=== PATIENT | female | born 1955 | race Native Hawaiian/Other Pacific Islander ===

== ENCOUNTER 2016-07-29 15:58 | Outpatient (CLI) | payer OTHER ==
[2016-07-29 17:23] LABS: PLATELET COUNT 218 K/uL (152-353)
== END 2016-07-29 19:21 | disposition home or self-care (01) ==
LOC: LABW 15:58
PROVIDERS: Nurse Practitioner
DX: R31.9 Hematuria, unspecified (principal); C67.9 Malignant neoplasm of bladder, unspecified
CPT/HCPCS: 36415; 85027

== ENCOUNTER 2016-08-11 17:54 | Observation (INO) | payer OTHER ==
[~2016-08-11] VITALS: Ht 154.9 cm; Wt 77.7 kg
[2016-08-11 18:05] VITALS: BP 155/85; TEMP 98.5
[2016-08-11 18:44] LABS: PLATELET COUNT 220 K/uL (152-353)
[2016-08-11 18:48] LABS: POTASSIUM 4.5 mmol/L (3.6-5.2)
[2016-08-11 19:04] LABS: PARTIAL THROMBOPLASTIN TIME 24.6 SECONDS (24.5-33.6)
--- NOTE | 2016-08-11 23:24 | NUR ---
RECEIVED REPORT ON PT FROM Mario Alberto CALVILLO RN FROM ED.
--- NOTE | 2016-08-11 23:30 | NUR ---
PT ARRIVED TO FLOOR AT THIS TIME VIA WHEELCHAIR PER ED STAFF. PT ORIENTED TO ROOM AND CALL SYSTEM. FURTHER ASSESSMENT DONE AT THIS TIME CHARTED.
[2016-08-12 00:38] VITALS: BP 153/72; TEMP 98.2; Ht 154.9 cm; Wt 77.7 kg
[2016-08-12 04:00] VITALS: BP 126/64; TEMP 98.1
[2016-08-12 08:00] VITALS: BP 142/61; TEMP 98.1
[2016-08-12 08:55] LABS: PLATELET COUNT 215 K/uL (152-353)
--- NOTE | 2016-08-12 09:15 | NUR ---
DANIELE SIBLEY APPLIED AT THIS TIME TO PT BILATERAL LOWER EXTREMITIES.
[2016-08-12 09:25] LABS: POTASSIUM 3.9 mmol/L (3.6-5.2); SODIUM 139 mmol/L (136-145)
[2016-08-12 12:00] VITALS: BP 119/56; TEMP 98
--- NOTE | 2016-08-12 13:58 | NUR ---
DC INSTRUCTIONS GIVEN TO PT AND FAMILY, IV DC'D WITH CANNULA INTACT AND SITE PROVIDED. PT INSTRUCTED ON FOLLOW UP APPTS WITH ANTONIO RAMIRES AND DR PEACOCK. PT VERBALIZED UNDERSTANDING. NAD NOTED. PT LEFT AMBULATORY REQUESTED. GAIT STEADY.
== END 2016-08-12 14:00 | disposition home or self-care (01) ==
LOC: ED 17:54 → MED/SURG 22:15
PROVIDERS: Emergency Medicine; ADMIT Emergency Medicine
DX: R10.84 Generalized abdominal pain (principal); R11.2 Nausea with vomiting, unspecified; E11.9 Type 2 diabetes mellitus without complications; J44.9 Chronic obstructive pulmonary disease, unspecified; I10 Essential (primary) hypertension; K85.90 Acute pancreatitis without necrosis or infection, unspecified; D72.828 Other elevated white blood cell count; C67.9 Malignant neoplasm of bladder, unspecified
CPT/HCPCS: 36415; 80053; 81000; 82150; 82550; 83690; 84484; 85027; 85610; 85730; 93005; 96361; 96365; 96366; 96374; 96375; 99220; 99284; G0378; J2270; J2405

== ENCOUNTER 2016-09-24 11:07 | Outpatient (CLI) | payer OTHER ==
[2016-09-24 11:25] LABS: POTASSIUM 5.4 mmol/L (3.6-5.2)
== END 2016-09-24 19:14 | disposition home or self-care (01) ==
LOC: LABW 11:07
PROVIDERS: Urology
DX: C67.9 Malignant neoplasm of bladder, unspecified (principal)
CPT/HCPCS: 36415; 80053

== ENCOUNTER 2016-09-27 11:23 | Outpatient (CLI) | payer OTHER ==
[2016-09-27 12:12] LABS: POTASSIUM 5.2 mmol/L (3.6-5.2)
== END 2016-09-27 12:30 | disposition home or self-care (01) ==
LOC: LABW 11:23
PROVIDERS: Urology
DX: C67.9 Malignant neoplasm of bladder, unspecified (principal)
CPT/HCPCS: 36415; 80053

== ENCOUNTER 2016-12-12 21:38 | Emergency (ER) | payer OTHER ==
[~2016-12-12] VITALS: Ht 154.9 cm; Wt 72.6 kg
[2016-12-12] MEDS ORDERED: GLIP10TA55 PO (21:49)
[2016-12-12] MEDS ORDERED: CRESTOR20 MG PO (21:49)
[2016-12-12] MEDS ORDERED: ALPR0.2566 PO (21:50)
[2016-12-12] MEDS ORDERED: OXYC5TAB24 PO (21:51)
[2016-12-12] MEDS ORDERED: BENICAR40 MG PO (21:51)
[2016-12-12] MEDS ORDERED: LEXAPRO10 MG OR (21:51)
[2016-12-13 00:05] VITALS: BP 168/78; TEMP 98.9
== END 2016-12-13 00:12 | disposition home or self-care (01) ==
LOC: ED 21:38
DX: M54.89 Other dorsalgia (principal); C67.9 Malignant neoplasm of bladder, unspecified; C79.9 Secondary malignant neoplasm of unspecified site
CPT/HCPCS: 96374; 96375; 99284; J1100; J1170; J1885; J2405

== ENCOUNTER 2016-12-26 02:19 | Inpatient (IN) | payer OTHER ==
[~2016-12-26] VITALS: Ht 154.9 cm; Wt 65.8 kg
[~2016-12-26 02:19] MED LIST: ALPR0.2566 PO; BENICAR40 MG PO; CRESTOR20 MG PO; GLIP10TA55 PO; LEXAPRO10 MG OR; OXYC5TAB24 PO
[2016-12-26 02:30] VITALS: BP 183/84; TEMP 99.4
[2016-12-26 03:25] LABS: PLATELET COUNT 286 K/uL (152-353)
[2016-12-26 04:11] VITALS: BP 143/567
[2016-12-26 09:26] VITALS: BP 161/69; TEMP 99; Ht 154.9 cm; Wt 65.8 kg
[2016-12-26 12:00] VITALS: BP 157/75; TEMP 98.5
[2016-12-26] MEDS ORDERED: MS CONTIN100 MG PO (13:12)
[2016-12-26] MEDS ORDERED: GLIM4TAB PO (13:13)
[2016-12-26] MEDS ORDERED: MS CONTIN60 MG PO (13:19)
[2016-12-26 14:51] LABS: POTASSIUM 5.1 mmol/L (3.6-5.2)
[2016-12-26] MEDS ORDERED: EXALGO8 MG PO (15:50)
[2016-12-26 16:00] VITALS: BP 159/81; TEMP 99.2
[2016-12-26 20:20] VITALS: BP 157/50; TEMP 99
[2016-12-27] VITALS (7 sets, daily range): BP systolic 155–184; BP diastolic 58–75; TEMP 97.8–99.7
[2016-12-28] VITALS: BP 168/75; TEMP 99
[2016-12-28 04:00] VITALS: BP 172/83; TEMP 99.4
[2016-12-28 08:00] VITALS: BP 190/74; TEMP 98.9
[2016-12-28 12:00] VITALS: BP 179/79; TEMP 98.8
[2016-12-28 16:00] VITALS: BP 178/68; TEMP 98.6
[2016-12-28 20:00] VITALS: BP 164/77; TEMP 99.3
[2016-12-29] VITALS: BP 182/71; TEMP 99
[2016-12-29 04:00] VITALS: BP 184/72; TEMP 99
[2016-12-29 08:44] LABS: PLATELET COUNT 226 K/uL (152-353)
[2016-12-29 09:00] LABS: POTASSIUM 4.3 mmol/L (3.6-5.2)
== END 2016-12-29 14:50 | disposition home or self-care (01) | DRG 690 ==
LOC: ED 02:19 → MED/SURG 07:21
PROVIDERS: Internal Medicine
DX: N39.0 Urinary tract infection, site not specified (principal); C78.7 Secondary malignant neoplasm of liver and intrahepatic bile duct; C78.00 Secondary malignant neoplasm of unspecified lung; C79.51 Secondary malignant neoplasm of bone; N10 Acute pyelonephritis; I10 Essential (primary) hypertension; J44.9 Chronic obstructive pulmonary disease, unspecified; K21.9 Gastro-esophageal reflux disease without esophagitis; E78.00 Pure hypercholesterolemia, unspecified; E11.9 Type 2 diabetes mellitus without complications; F32.89 Other specified depressive episodes; K59.09 Other constipation; C67.9 Malignant neoplasm of bladder, unspecified; B96.20 Unspecified Escherichia coli [E. coli] as the cause of diseases classified elsewhere
CPT/HCPCS: 36415; 80048; 80053; 81000; 82948; 85027; 87077; 87086; 87088; 87186; 96372; 99284; J0696; J1170; J1642; J1885; J1956; J3490